=== PATIENT | male | born 1995 | race Caucasian/White ===

== ENCOUNTER 2023-03-14 05:28 | Emergency (ER) | payer BC, OTHER, SELFPAY ==
--- NOTE | ~2023-03-14 | CT_ITS ---
CT of the Abdomen and Pelvis: Indication: Abdominal pain Technique: 2.5 mm axial scans were obtained through the abdomen and pelvis following intravenous adm inistration of 100 cc of Omnipaque 350. Dose reduction technique was used on this scan by utilizing a utomated exposure control and iterative reconstruction technique. The dose-length product (DLP) was 2 14.66 mGy-cm. Findings: Scans through the lung bases are unremarkable. The liver, spleen, pancreas, adrenals and kidneys are within normal limits. Cholecystectomy clips are present. No evidence of aortic aneurysm. No lymphadenopathy. No bowel obstruction or bowel wall thickening. There is no evidence to suggest acute appendicitis. Images through the pelvis were performed. Urinary bladder unremarkable. No pelvic mass seen. No ascit es. Impression: No significant abnormalities seen. Reviewed, dictated and finalized at [facility]. Impression: No significant abnormalities seen.
[2023-03-14 05:29] VITALS: BP 143/100; PULSE 74; RESP 32; TEMP 36.6; O2SAT 100
--- NOTE | 2023-03-14 05:51 | ED.GENADULT ---
HPI - General Adult General Chief complaint: Nausea/Vomiting/Diarrhea <Jb Li DO - Last Filed: 03/16/23 14:39> Stated complaint: Vomiting <Jb Li DO - Last Filed: 03/16/23 14:39> Time Seen by Provider: 03/14/23 07:07 <Jb Li DO - Last Filed: 03/16/23 14:39> History of Present Illness HPI narrative: Renaldo is a 27M with a PMH of cannabis abuse and recent cholecystectomy that presented to the ED with epigastric pain and profuse nausea and vomiting. It started about 24 hours ago and has become worse. He cannot keep anything down. It is better with hot showers. There is no CP, dyspnea, fevers, diarrhea, constipation, or hematemesis. <Jb Li DO - Last Filed: 03/16/23 14:39> Related Data Home medications: Home Medications Medication Instructions Recorded Confirmed ondansetron 4 mg disintegrating 4 mg PO Q6H PRN Vomiting 03/14/23 03/14/23 tablet sertraline 25 mg tablet (Zoloft) 25 mg PO DAILY 03/14/23 03/14/23 <Jb Li DO - Last Filed: 03/16/23 14:39> Allergies/adverse reactions: Allergies Allergy/AdvReac Type Severity Reaction Status Date / Time No Known Allergies Allergy Verified 03/14/23 05:36 <Jb Li DO - Last Filed: 03/16/23 14:39> Review of Systems Review of Systems: All systems reviewed & are unremarkable except as noted in HPI and below <Jb Li DO - Last Filed: 03/16/23 14:39> Exam Const: General: healthy appearing and no acute distress <bJ Li DO - Last Filed: 03/16/23 14:39> Nutritional Appearance: well nourished <Jb Li DO - Last Filed: 03/16/23 14:39> Orientation/consciousness: patient oriented x3 <Jb Li DO - Last Filed: 03/16/23 14:39> HENMT: Head: normal to inspection <Jb Medinaing, DO - Last Filed: 03/16/23 14:39> Ears: external ears normal <Jb PJohnny Li, DO - Last Filed: 03/16/23 14:39> Eyes: Conjunctivae: conjunctivae normal <Jb PJohnny Li, DO - Last Filed: 03/16/23 14:39> Pupils: Equal, round and reactive pupils present <Jb PJohnny Li, DO - Last Filed: 03/16/23 14:39> Neck: Neck: normal visual inspection <Jb PJohnny Li, DO - Last Filed: 03/16/23 14:39> Chest: Chest palpation & inspection: normal inspection of the chest <Jb PJohnny Li, DO - Last Filed: 03/16/23 14:39> Resp: Effort & Inspection: normal respiratory effort <Jb PJohnny Li, DO - Last Filed: 03/16/23 14:39> Auscultation: clear to auscultation bilaterally <Jb Li, DO - Last Filed: 03/16/23 14:39> Cardio: Rate: regular rate <Jb PJohnny Li, DO - Last Filed: 03/16/23 14:39> Rhythm: regular rhythm <Jb PJohnny Li, DO - Last Filed: 03/16/23 14:39> GI: Inspection: non-distended <Jb Li, DO - Last Filed: 03/16/23 14:39> GI Palp: Yes Soft to palpation, No Tenderness to palpation present (GI), No Guarding due to palpation present (GI), No Rigid due to palpation and No Rebound tenderness present <Jb PJohnny Li, DO - Last Filed: 03/16/23 14:39> Auscultation: normal bowel sounds <Jb P. Jen, DO - Last Filed: 03/16/23 14:39> : General: Yes bladder normal to palpation <Jb PJohnny Li, DO - Last Filed: 03/16/23 14:39> Back/Spine/Pelvis: Back: no CVA tenderness <Jb PJohnny Li, DO - Last Filed: 03/16/23 14:39> Skin: General skin exam: normal color <Jb Li DO - Last Filed: 03/16/23 14:39> Rashes: no rashes <Jb Li DO - Last Filed: 03/16/23 14:39> Neuro: General: patient oriented x3 and moves all extremities <Jb Li DO - Last Filed: 03/16/23 14:39> Cranial nerves: Yes Nystagmus not present <Jb Li DO - Last Filed: 03/16/23 14:39> Speech: normal speech <Jb Li DO - Last Filed: 03/16/23 14:39> Extrem: General: normal to inspection <Jb Li DO - Last Filed: 03/16/23 14:39> Psych: Mental Status: mental status grossly
[2023-03-14] MEDS: ONDANSETRON INJ 4 MG/2 ML VIAL IV PUSH (06:02)
[2023-03-14] MEDS: diphenhydrAMINE HCl INJ 50 MG/ML VIAL IV PUSH (06:02)
[2023-03-14 06:03] LABS: Basophils Absolute Auto 0.03 K/mm3 (0.00-0.10); Basophils Percent Auto 0.2 % (0.0-1.0); Hematocrit 51.1 % (40.0-54.0); Hemoglobin 18.3 g/dL (14.0-18.0); Immature Granulocyte Absolute 0.07 K/mm3 (0.00-0.00); Immature Granulocyte Percent A 0.5 % (0.0-0.0); Lymphocytes Absolute Auto 1.38 K/mm3 (1.10-4.50); Lymphocytes Percent Auto 10.7 % (18.0-42.0); Mean Corpuscular HGB Conc 35.8 g/dL (32.0-36.0); Mean Corpuscular Volume 89.3 fL (78.0-102.0); Mean Platelet Volume 9.6 fl (8.7-11.0); Monocytes Absolute Auto 0.53 K/mm3 (0.10-0.90); Monocytes Percent Auto 4.1 % (2.0-11.0); Neutrophils Absolute Auto 10.9 K/mm3 (1.7-7.2); Neutrophils Percent Auto 84.5 % (50.0-70.0); Platelet Count Result 354 K/mm3 (150-420); Red Blood Count 5.72 M/mm3 (4.70-6.10); Red Cell Distribution Width 12.2 % (11.6-14.4); White Blood Count 12.9 K/mm3 (4.8-10.8)
[2023-03-14] MEDS: SODIUM CHLORIDE 0.9% IV 1,000 ML 999 ML IV CONT (06:03)
[2023-03-14 06:08] VITALS: BP 142/99; PULSE 73; RESP 18; O2SAT 100
[2023-03-14] MEDS: CAPSAICIN 0.025% CREAM 60 GM TUBE 1 APPLIC TOPICAL (06:18)
[2023-03-14 06:28] LABS: Alanine Aminotransferase 31 U/L (16-63); Albumin Level 5.6 g/dL (3.4-5.0); Alkaline Phosphatase 91 U/L (46-116); Anion Gap 20 mmol/L (8-16); Aspartate Amino Transferase 16 U/L (15-37); Bilirubin,Total 0.9 mg/dL (0.00-1.00); Blood Urea Nitrogen 27 mg/dL (7-18); CRP 1.1 mg/dL (0.0-0.9); Calcium 11.4 mg/dL (8.5-10.1); Carbon Dioxide 21 mmol/L (21-32); Chloride 98 mmol/L (98-108); Estimated CRCL calculation 43 ml/min; Estimated Glomerular Filt Rate 47; Glucose 185 mg/dL (70-99); Lipase 21 U/L (16-77); Osmolality Calculated 298 mOsm/kg (285-295); Potassium 3.7 mmol/L (3.5-5.1); Sodium 139 mmol/L (136-145)
[2023-03-14 06:39] VITALS: BP 120/86; PULSE 89; RESP 20
--- NOTE | 2023-03-14 06:42 | PC.NURSE ---
Addendum entered by Anitra Sampson RN 03/14/23 06:43: 0642-PT TRANSPORTED TO IMAGING VIA HOSPITAL STRETCHER, ESCORTED BY ORDERLY. Original Note: 0642-PT TRANSPORTED VIA HOSPITAL STRETCHER, ESCORTED BY ORDERLY.
[2023-03-14 06:46] LABS: Influenza A QL RT-PCR Negative (Negative); Influenza B QL RT-PCR Negative (Negative); SARS-CoV-2 RNA PCR Negative (Negative)
[2023-03-14 06:50] LABS: RSV RNA, RT-PCR Negative (Negative)
--- NOTE | 2023-03-14 06:55 | PC.NURSE ---
0655-PT RETURNS FROM IMAGING, VIA HOSPITAL STRETCHER, ESCORTED BY [employer].
--- NOTE | 2023-03-14 07:35 | PC.NURSE ---
pt is lying on stretcher with ivf infusing. pt had arm bent and fluids were not infusing. pt to await ivf completion for dc. sig other at bedside. will continue to monitor.
[2023-03-14 07:39] VITALS: BP 126/93; PULSE 54; RESP 18; O2SAT 100
== END 2023-03-14 07:45 | disposition home or self-care (01) ==
PROVIDERS: Family Medicine; Emergency Provider Student in an Organized Health Care Education/Training Program
DX: R11.2 Nausea with vomiting, unspecified (principal); N17.9 Acute kidney failure, unspecified; Z20.822 Contact with and (suspected) exposure to COVID-19; Z79.899 Other long term (current) drug therapy; Z90.49 Acquired absence of other specified parts of digestive tract
CPT/HCPCS: 36415; 74177; 80053; 83690; 85025; 86140; 87637; 96361; 96374; 96375; 99284; A9270; J1200; J2405; J7030; Q9967

== ENCOUNTER 2023-04-29 10:33 | Emergency (ER) | payer BC, OTHER, SELFPAY ==
[2023-04-29] VITALS (23 sets, daily range): BP systolic 116–152; BP diastolic 66–105; PULSE 72–129; RESP 15–33; TEMP 36.6–37; O2SAT 96–100
--- NOTE | 2023-04-29 10:55 | ED.NAVMDI ---
HPI - Nausea/Vomiting/Diarrhea General Chief complaint: Nausea/Vomiting/Diarrhea Stated complaint: VOMITING Time Seen by Provider: 04/29/23 10:42 Source: patient Mode of arrival: ambulatory Limitations: no limitations History of Present Illness HPI Narrative: Patient is a 27-year-old male with significant past medical history that presents today for nausea vomiting. Patient has nausea vomiting and generalized abdominal pain for the last night. He says he ate a steak last night was unable it down and started throwing up. Says he has been throwing up on and on. He has not taken anything for this. He also lot of nausea and slight generalized abdominal pain. He did have his gallbladder out 3 months ago. States they took his gallbladder out for this reason because he was having a lot of episodes of nausea and vomiting. He states that it is not gotten any better since 8 of gallbladder out. MD elicited complaint: nausea and vomiting Pertinent past history: cyclical vomiting Onset (ago): day(s) Description of vomiting: watery Associated nausea: Yes Associated abdominal pain: No Location of pain: diffuse Radiation: diffuse Pain consistency: intermittent Severity: moderate Quality: cramping Exacerbating factors: none Relieving factors: none Context: history of abdominal surgery and marijuana use Associated symptoms: diaphoresis and nausea/vomiting Related Data Home Medications Medication Instructions Recorded Confirmed ondansetron 4 mg disintegrating 4 mg PO Q6H PRN Vomiting 03/14/23 03/14/23 tablet sertraline 25 mg tablet (Zoloft) 25 mg PO DAILY 03/14/23 03/14/23 Allergies Allergy/AdvReac Type Severity Reaction Status Date / Time No Known Allergies Allergy Verified 03/14/23 05:36 Review of Systems Review of Systems: All systems reviewed & are unremarkable except as noted in HPI and below Constitutional: Constitutional: Reports as per HPI Eyes: Eyes: Reports no additional eye complaints ENT: Reports system reviewed and no additional complaints, except as documented Cardiovascular: Cardiovascular: Reports no additional cardiovascular complaints Respiratory: Respiratory: Reports no additional respiratory complaints Gastrointestinal: Gastrointestinal: Reports as per HPI, Reports abdominal pain, Reports nausea and Reports vomiting Genitourinary: Genitourinary: Reports no additional male genitourinary complaints Musculoskeletal: Musculoskeletal: Reports no additional musculoskeletal complaints Psychiatric: Psychiatric: Reports no additional psychiatric complaints Endocrine: Endocrine: Reports no additional endocrine complaints Exam Const: General: diaphoretic and ill appearing Nutritional Appearance: thin Orientation/consciousness: patient oriented x3 Limitations: no limitations HENMT: Head: normal to inspection Ears: external ears normal Face/Nose/Sinus: Normal external nose present Face and sinus: normal facial exam Mouth: Yes Normal oral and palatal mucosa present Teeth and gingiva: dentition normal Throat: posterior oropharynx normal Eyes: Conjunctivae: conjunctivae normal Cornea: corneas normal Pupils: Equal, round and reactive pupils present Neck: Neck: normal visual inspection Chest: Chest palpation & inspection: normal inspection of the chest Resp: Effort & Inspection: normal respiratory effort Auscultation: clear to auscultation bilaterally Cardio: Rate: regular rate Rhythm: regular rhythm GI: GI Palp: Yes Tenderness to palpation present (GI) Auscultation: Hyperactive bowel sounds present : General: Yes bladder normal to palpation Back/Spine/Pelvis: Back: no CVA tenderness Skin: General skin exam: normal color Neuro: General: patient oriented x3 Cranial nerves: Yes Nystagmus not present Speech: normal speech Extrem: General: normal to inspection Psych: Mental Status: mental status grossly normal Course Reevaluation(s) Reevaluation #1: Patient after receivin
[2023-04-29 10:59] LABS: Basophils Absolute Auto 0.08 K/mm3 (0.00-0.10); Basophils Percent Auto 0.4 % (0.0-1.0); Hematocrit 56.4 % (40.0-54.0); Immature Granulocyte Absolute 0.12 K/mm3 (0.00-0.00); Immature Granulocyte Percent A 0.6 % (0.0-0.0); Lymphocytes Absolute Auto 2.42 K/mm3 (1.10-4.50); Lymphocytes Percent Auto 12.2 % (18.0-42.0); Mean Corpuscular HGB Conc 35.5 g/dL (32.0-36.0); Mean Corpuscular Hemoglobin 32.4 pg (27.0-31.0); Mean Corpuscular Volume 91.3 fL (78.0-102.0); Mean Platelet Volume 9.6 fl (8.7-11.0); Monocytes Absolute Auto 1.44 K/mm3 (0.10-0.90); Monocytes Percent Auto 7.2 % (2.0-11.0); Neutrophils Absolute Auto 15.9 K/mm3 (1.7-7.2); Neutrophils Percent Auto 79.6 % (50.0-70.0); Platelet Count Result 429 K/mm3 (150-420); Red Blood Count 6.18 M/mm3 (4.70-6.10); Red Cell Distribution Width 12.2 % (11.6-14.4); White Blood Count 19.9 K/mm3 (4.8-10.8)
[2023-04-29] MEDS: PANTOPRAZOLE SODIUM IV 40 MG VIAL IV PUSH (11:03)
[2023-04-29] MEDS: METOCLOPRAMIDE HCL INJ 10 MG/2 ML VIAL IV PUSH (11:03)
[2023-04-29] MEDS: ONDANSETRON INJ 4 MG/2 ML VIAL IV PUSH (11:03)
[2023-04-29] MEDS: SODIUM CHLORIDE 0.9% IV 1,000 ML 999 ML IV CONT ×3 (11:03→13:28)
[2023-04-29 11:11] LABS: Alanine Aminotransferase 75 U/L (16-63); Albumin Level 6.4 g/dL (3.4-5.0); Alkaline Phosphatase 110 U/L (46-116); Anion Gap 24 mmol/L (8-16); Aspartate Amino Transferase 47 U/L (15-37); Bilirubin,Total 0.8 mg/dL (0.00-1.00); Blood Urea Nitrogen 24 mg/dL (7-18); Carbon Dioxide 25 mmol/L (21-32); Chloride 90 mmol/L (98-108); Estimated Glomerular Filt Rate 19; Glucose 149 mg/dL (70-99); Lipase 23 U/L (16-77); Osmolality Calculated 295 mOsm/kg (285-295); Potassium 3.6 mmol/L (3.5-5.1); Sodium 139 mmol/L (136-145); Total Protein 11.9 g/dL (6.4-8.2)
[2023-04-29 11:12] LABS: Calcium 12.2 mg/dL (8.5-10.1)
[2023-04-29 14:46] LABS: Anion Gap 8 mmol/L (8-16); Blood Urea Nitrogen 21 mg/dL (7-18); Calcium 8.9 mg/dL (8.5-10.1); Carbon Dioxide 30 mmol/L (21-32); Chloride 103 mmol/L (98-108); Estimated Glomerular Filt Rate 40; Glucose 109 mg/dL (70-99); Osmolality Calculated 296 mOsm/kg (285-295); Potassium 3.5 mmol/L (3.5-5.1); Sodium 141 mmol/L (136-145)
== END 2023-04-29 15:10 | disposition home or self-care (01) ==
PROVIDERS: Emergency Provider Family Medicine
DX: K52.9 Noninfective gastroenteritis and colitis, unspecified (principal); E86.0 Dehydration; N17.9 Acute kidney failure, unspecified
CPT/HCPCS: 36415; 80048; 80053; 83690; 85025; 96361; 96374; 96375; 99284; 99285; C9113; J2405; J2765; J7030

== ENCOUNTER 2023-06-14 15:55 | Emergency (ER) | payer BC, OTHER, SELFPAY ==
[2023-06-14] VITALS (12 sets, daily range): BP systolic 133–151; BP diastolic 81–105; PULSE 72–83; RESP 17–20; TEMP 36.4–36.6; O2SAT 98–100
--- NOTE | 2023-06-14 16:01 | ED.NAVMDI ---
HPI - Nausea/Vomiting/Diarrhea General Chief complaint: Nausea/Vomiting/Diarrhea Stated complaint: N-V Time Seen by Provider: 06/14/23 15:59 History of Present Illness HPI Narrative: Pt reports has vomited over 100 times this mornig. Pt requesting IV meds. Pt has history of this and admits to smoking cannabis and has been told in the past that this is likely the cause but pt admits to still smoking. Pt also has crampy abdominal pain. Pt denies fever or diarrhea. Related Data Home Medications Medication Instructions Recorded Confirmed ondansetron 4 mg disintegrating 4 mg PO Q6H PRN Vomiting 03/14/23 06/14/23 tablet sertraline 25 mg tablet (Zoloft) 25 mg PO DAILY 03/14/23 06/14/23 Allergies Allergy/AdvReac Type Severity Reaction Status Date / Time No Known Allergies Allergy Verified 06/14/23 16:02 Review of Systems Review of Systems: All systems reviewed & are unremarkable except as noted in HPI and below Exam Const: General: no acute distress and alert Nutritional Appearance: thin Orientation/consciousness: patient oriented x3 Limitations: no limitations HENMT: Mouth: Yes Normal oral and palatal mucosa present Neck: Neck: normal visual inspection Resp: Effort & Inspection: normal respiratory effort Auscultation: clear to auscultation bilaterally Cardio: Rate: regular rate Rhythm: regular rhythm GI: GI Palp: Yes Soft to palpation and No Tenderness to palpation present (GI) Auscultation: normal bowel sounds Skin: General skin exam: normal color Wounds: no wounds Neuro: General: patient oriented x3, moves all extremities, no meningeal signs and no focal motor deficits Extrem: General: normal to inspection and no clubbing, cyanosis or edema Psych: Other: very anxious and hyperventilating Course Vital Signs Vital signs: Vital Signs Temperature 97.6 F 06/14/23 15:55 Pulse Rate 72 06/14/23 15:55 Respiratory Rate 20 06/14/23 15:55 Blood Pressure 133/81 06/14/23 15:55 Pulse Oximetry 100 06/14/23 15:55 Temperature 97.8 F 06/14/23 17:03 Pulse Rate 83 06/14/23 17:03 Respiratory Rate 17 06/14/23 17:03 Blood Pressure 151/99 H 06/14/23 17:03 Pulse Oximetry 98 06/14/23 17:03 Oxygen Delivery Room Air 06/14/23 17:03 MDM - Nausea/Vomiting/Diarrhea MDM Narrative Medical decision making narrative: Pt has history of canabis hyperemesis and is still smoking cannabis. Pt reportedly has vomited over 100 times but does not appear dehydrated clinically. Wioll check some lytes and give IVF and Haldol. Pt BUN and Cr elevated again. Not sure if it's dehydration or renal insufficiency. likely dehydration but needs to follow up and get labs when not vomiting to be safe. Inromed mother of this. Pt also needs to stop smoking cannabis. Informed both patient and mother. Pt is resting comfortably and not vomiting. Will discharge home. Pt can orally rehydrate now that the vomiting is under control. madina prescribe a few zofran for home. Lab Data 06/14/23 16:09 Labs: Lab Results 06/14/23 Range/Units 16:09 Sodium 137 (136-145) mmol/L Potassium 4.0 (3.5-5.1) mmol/L Chloride 93 L (98-108) mmol/L Carbon Dioxide 21 (21-32) mmol/L Anion Gap 23 H (8-16) mmol/L BUN 19 H (7-18) mg/dL Creatinine 2.03 H (0.70-1.30) mg/dL Estim Creat Clear Calc Not Reportable Estimated GFR 40 L (59 - ) Glucose 164 H (70-99) mg/dL Calculated Osmolality 290 (285-295) mOsm/kg Calcium 11.7 H (8.5-10.1) mg/dL Discharge Plan Discharge Clinical Impression: Cannabis hyperemesis syndrome concurrent with and due to cannabis dependence Patient Disposition: Home, Self-Care Condition: Improved Instructions: Antibiotic Form, Cannabis Use Disorder (ED), Cyclic Vomiting Syndrome (ED) Additional Instructions: have kidney function rechecked when not vomiting and dehydrated. stop smoking cannabis. Prescriptions: New ond
[2023-06-14] MEDS: SODIUM CHLORIDE 0.9% IV 1,000 ML 999 ML IV CONT (16:14)
[2023-06-14] MEDS: HALOPERIDOL LACTATE 5 MG/ML VIAL IV PUSH (16:15)
[2023-06-14 16:23] LABS: Anion Gap 23 mmol/L (8-16); Blood Urea Nitrogen 19 mg/dL (7-18); Calcium 11.7 mg/dL (8.5-10.1); Carbon Dioxide 21 mmol/L (21-32); Chloride 93 mmol/L (98-108); Estimated Glomerular Filt Rate 40; Glucose 164 mg/dL (70-99); Osmolality Calculated 290 mOsm/kg (285-295); Sodium 137 mmol/L (136-145)
== END 2023-06-14 17:03 | disposition home or self-care (01) ==
PROVIDERS: Emergency Provider Emergency Medicine; PCP Family Medicine
DX: J66.2 Cannabinosis (principal)
CPT/HCPCS: 36415; 80048; 96361; 96374; 99284; J1630; J7030

== ENCOUNTER 2023-08-17 15:25 | Emergency (ER) | payer BC, OTHER, SELFPAY ==
--- NOTE | ~2023-08-17 | XR_ITS ---
EXAMINATION: XR chest 1V portable INDICATION: Vomiting TECHNIQUE: Portable AP chest at 1722 hours COMPARISON: None available FINDINGS: The lungs are free of acute opacities. No pleural effusion or pneumothorax. The cardiomedia stinal silhouette is normal. IMPRESSION: 1. No acute cardiopulmonary abnormality. Reviewed, dictated and finalized at location F.
--- NOTE | ~2023-08-17 | CT_ITS ---
EXAMINATION: CT abdomen pelvis wo con DATE: 08/17/2023 18:37 INDICATION: Abdominal pain TECHNIQUE: Computed tomography (CT) of the abdomen and pelvis was performed without intravenous contr ast. The dose-length product (DLP) was 242.60 mGy-cm. Automated exposure control and iterative recons truction technique were employed. COMPARISON: 03/14/2023 FINDINGS: The lung bases are clear. The heart size is normal. Changes of cholecystectomy are noted. W ithin the limitations of noncontrast examination, the liver, spleen, pancreas, and adrenal glands are normal. The kidneys are unremarkable. No pathologically enlarged abdominal or pelvic lymph nodes are identified. There is no free intraperitoneal gas. There is mild distention of the stomach and proxim al duodenum with transition in the third portion of the duodenum. There is mild lumbar spondylosis. IMPRESSION: 1. Mild distention of the stomach and proximal duodenum which is nonspecific but can be seen in setti ng of superior mesenteric artery syndrome. Reviewed, dictated and finalized at location F. IMPRESSION: 1. Mild distention of the stomach and proximal duodenum which is nonspecific bu t can be seen in setting of superior mesenteric artery syndrome.
[2023-08-17 15:27] VITALS: BP 136/101; PULSE 77; RESP 20; TEMP 36.4; O2SAT 100
--- NOTE | 2023-08-17 15:29 | ED.NAVMDI ---
HPI - Nausea/Vomiting/Diarrhea General Chief complaint: Nausea/Vomiting/Diarrhea Stated complaint: NAUSEA Time Seen by Provider: 08/17/23 15:29 Source: patient Mode of arrival: ambulatory Limitations: no limitations History of Present Illness HPI Narrative: 27-year-old male with a history of cannabis cyclic vomiting syndrome presents to the ER with -- multiple episodes of vomiting -- diffuse abdominal pain no MD elicited complaint: vomiting and abdominal pain Pertinent past history: cyclical vomiting Onset (ago): hour(s) ( 2 days) Description of vomiting: watery Associated nausea: Yes Associated abdominal pain: Yes Location of pain: diffuse Radiation: diffuse Pain consistency: constant Severity: severe Exacerbating factors: none Relieving factors: none Associated symptoms: denies other symptoms Related Data Home Medications Medication Instructions Recorded Confirmed ondansetron 4 mg disintegrating 4 mg PO Q6H PRN Vomiting 03/14/23 06/14/23 tablet sertraline 25 mg tablet (Zoloft) 25 mg PO DAILY 03/14/23 06/14/23 Allergies Allergy/AdvReac Type Severity Reaction Status Date / Time No Known Allergies Allergy Verified 06/14/23 16:02 Review of Systems Review of Systems: All systems reviewed & are unremarkable except as noted in HPI and below Constitutional: Constitutional: Reports as per HPI, Reports no additional constitutional complaints and Reports weakness Eyes: Eyes: Reports as per HPI and Reports no additional eye complaints ENT: Reports system reviewed and no additional complaints, except as documented and Reports as per HPI Cardiovascular: Cardiovascular: Reports as per HPI and Reports no additional cardiovascular complaints Respiratory: Respiratory: Reports as per HPI and Reports no additional respiratory complaints Gastrointestinal: Gastrointestinal: Reports as per HPI, Reports no additional gastrointestinal complaints, Reports nausea and Reports vomiting Genitourinary: Genitourinary: Reports no additional male genitourinary complaints Musculoskeletal: Musculoskeletal: Reports no additional musculoskeletal complaints and Reports as per HPI Integumentary/Breasts: Skin/Breast: Reports system reviewed and no additional complaints, except as docu and Reports as per HPI Neurologic: Reports system reviewed and no additional complaints, except as documented and Reports as per HPI Psychiatric: Psychiatric: Reports no additional psychiatric complaints, Reports as per HPI and Reports anxiety Endocrine: Endocrine: Reports no additional endocrine complaints and Reports as per HPI Hematologic/Lymphatic: Hematologic/Lymphatic: Reports no additional hematologic/lymphatic complaints and Reports as per HPI Allergic/Immunologic: Allergic/Immunologic: Reports no additional allergic/immunologic complaints and Reports as per HPI Exam Narrative: blood pressure is 136/101. Pulse is 70 temperature 36.4? Const: General: ill appearing Orientation/consciousness: patient oriented x3 Limitations: no limitations HENMT: Head: normal to inspection Ears: external ears normal Face/Nose/Sinus: Normal external nose present Face and sinus: normal facial exam Mouth: Yes Normal oral and palatal mucosa present Throat: posterior oropharynx normal Eyes: Conjunctivae: conjunctivae normal Cornea: corneas normal Pupils: Equal, round and reactive pupils present EOM: EOMs intact bilaterally Direct Ophthalmoscopy: no photophobia Neck: Neck: normal visual inspection Chest: Chest palpation & inspection: normal inspection of the chest Resp: Effort & Inspection: normal respiratory effort Auscultation: clear to auscultation bilaterally Cardio: Rate: regular rate Rhythm: regular rhythm GI: GI Palp: Yes Soft to palpation Other: diffuse tenderness without any rigidity or rebound : General: Yes no CVA tenderness Back/Spine/Pelvis: Back: no CVA tenderness Skin: General skin exam: normal color Rashes: no
[2023-08-17] MEDS: LACTATED RINGERS 1,000 ML 999 ML IV CONT (15:49)
[2023-08-17] MEDS: HALOPERIDOL LACTATE 5 MG/ML VIAL IV PUSH (15:50)
[2023-08-17 15:52] LABS: Basophils Absolute Auto 0.09 K/mm3 (0.00-0.10); Basophils Percent Auto 0.5 % (0.0-1.0); Eosinophils Absolute Auto 0.02 K/mm3 (0.02-0.50); Eosinophils Percent Auto 0.1 % (1.0-6.0); Hematocrit 57.2 % (40.0-54.0); Hemoglobin 20.5 g/dL (14.0-18.0); Immature Granulocyte Absolute 0.16 K/mm3 (0.00-0.00); Immature Granulocyte Percent A 0.8 % (0.0-0.0); Lymphocytes Absolute Auto 1.58 K/mm3 (1.10-4.50); Mean Corpuscular HGB Conc 35.8 g/dL (32-36); Mean Corpuscular Hemoglobin 32.2 pg (27.0-31.0); Mean Corpuscular Volume 89.8 fL (78.0-102.0); Mean Platelet Volume 9.4 fl (8.7-11.0); Monocytes Absolute Auto 1.57 K/mm3 (0.10-0.90); Monocytes Percent Auto 7.9 % (2.0-11.0); Neutrophils Absolute Auto 16.44 K/mm3 (1.70-7.20); Neutrophils Percent Auto 82.7 % (50.0-70.0); Platelet Count Result 414 K/mm3 (150-420); Red Blood Count 6.37 M/mm3 (4.70-6.10); White Blood Count 19.9 K/mm3 (4.8-10.8)
[2023-08-17 16:08] LABS: INR 0.9; Partial Thromboplastin Time 23.3 Sec (23.9-30.70); Prothrombin Time 10.3 Seconds (9.50-12.1)
[2023-08-17 16:11] LABS: Alanine Aminotransferase 77 U/L (16-63); Alkaline Phosphatase 107 U/L (46-116); Anion Gap 22 mmol/L (8-16); Aspartate Amino Transferase 62 U/L (15-37); Bilirubin,Total 1.5 mg/dL (0.00-1.00); Blood Urea Nitrogen 16 mg/dL (7-18); Carbon Dioxide 22 mmol/L (21-32); Chloride 94 mmol/L (98-108); Estimated CRCL calculation 35 ml/min; Estimated Glomerular Filt Rate 31; Glucose 215 mg/dL (70-99); Osmolality Calculated 293 mOsm/kg (285-295); Sodium 138 mmol/L (136-145)
[2023-08-17 16:13] LABS: Calcium 12.8 mg/dL (8.5-10.1); Potassium 5.9 mmol/L (3.5-5.1)
[2023-08-17 16:14] LABS: Lactic Acid Reflex 7.4 mmol/L (0.4-2.0)
[2023-08-17 16:22] LABS: Creatine Kinase 353 U/L (39-308); Lipase 27 U/L (16-77); Troponin I 9.9 ng/L (0.00-60.4)
[2023-08-17 16:30] VITALS: BP 138/112; PULSE 68; RESP 20; O2SAT 99
[2023-08-17] MEDS: SODIUM CHLORIDE 0.9% IV 1,000 ML 999 ML IV CONT (16:46)
[2023-08-17 17:01] LABS: Ethanol < 3 mg/dL (0-6)
[2023-08-17] MEDS: SODIUM CHLORIDE 0.9% IV 1,000 ML 300 ML IV CONT (17:10)
[2023-08-17 17:30] VITALS: BP 138/112; PULSE 78; RESP 20; O2SAT 99
[2023-08-17 18:22] LABS: Appearance Urine Clear (Clear); Bilirubin Urine 2+ (Negative); Blood Urine 2+ (Negative); Color Urine Dark Yellow (Yellow); Glucose Urine UA Negative (Negative); Ketones Urine Trace (Negative); Leukocyte Esterase Ur Trace LEU/UL (Negative); Nitrate Urine Negative (Negative); Protein Urine 3+ (Negative); Specific Grav Ur >= 1.030 (1.010-1.020); Urobilinogen Urine 0.2 mg/dL (0.2-1.0)
[2023-08-17] MEDS: ONDANSETRON INJ 4 MG/2 ML VIAL IV PUSH (18:22)
[2023-08-17 18:30] VITALS: BP 111/100; PULSE 105; RESP 20; O2SAT 99
[2023-08-17 18:30] LABS: Add Urine Microscopic? YES; Bacteria Urine 2+ /hpf; Hyaline Casts Urine 15-19 /lpf; RBC Urine 21-50 /hpf (0-2); Squamous Epithelial Cell Urine None seen /hpf (Few); WBC Urine 0-3 /hpf (0-3)
[2023-08-17 18:31] LABS: Amorphous Sediment Urine Moderate
[2023-08-17 18:33] LABS: Amphetamine Screen Urine Negative (Negative); Barbiturate Screen Urine Negative (Negative); Benzodiazepines Screen Urine Negative (Negative); Cannabinoid Screen Urine Positive (Negative); Cocaine Screen Urine Positive (Negative); Methadone Screen Urine Negative (Negative); Opiate Screen Urine Positive (Negative); Phencyclidine Screen Urine Negative (Negative)
[2023-08-17 18:49] LABS: Reflex Lactic Acid Yes or No Add Lactic
--- NOTE | 2023-08-17 19:21 | PC.NURSE ---
patient report received from FREEDOM Ortiz. patient resting on stretcher, ivf infusing and patient temperature rechecked, now febrile. ERP made aware.
[2023-08-17 19:22] VITALS: PULSE 109; RESP 20; TEMP 38.6; O2SAT 96
--- NOTE | 2023-08-17 19:33 | PC.NURSE ---
patient called out as IV pump beeping. encouraged to leave his arm straight as the pump continues to beep if his arm is bent. patient asking RN if he can leave now. RN explained patient should stay however we cannot keep him here if he wishes to leave. patient calling his ride, asked if he has been running a fever at home and patient states probably adding he has been sweating . respiratory swab obtained and sent to lab, biomechanical engineer updated on new orders for blood cultures if patient agrees.
--- NOTE | 2023-08-17 19:44 | PC.NURSE ---
RN and ERP at patient bedside for update. patient awake and alert, states he needs to leave now as his neighbor is his only ride and he is only here for work and has no family close. patient states he cannot stay at the hospital .
[2023-08-17 20:01] LABS: Anion Gap 13 mmol/L (8-16); Blood Urea Nitrogen 14 mg/dL (7-18); Calcium 9.8 mg/dL (8.5-10.1); Carbon Dioxide 24 mmol/L (21-32); Chloride 104 mmol/L (98-108); Estimated CRCL calculation 62 ml/min; Estimated Glomerular Filt Rate 60; Glucose 123 mg/dL (70-99); Osmolality Calculated 293 mOsm/kg (285-295); Potassium 4.6 mmol/L (3.5-5.1); Sodium 141 mmol/L (136-145)
[2023-08-17 20:37] LABS: Influenza A QL RT-PCR Negative (Negative); Influenza B QL RT-PCR Negative (Negative); RSV RNA, RT-PCR Negative (Negative); SARS-CoV-2 RNA PCR Negative (Negative)
--- NOTE | 2023-08-24 12:37 | PC.NURSE ---
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
== END 2023-08-17 19:54 | disposition left against medical advice (07) ==
PROVIDERS: Emergency Provider Internal Medicine Critical Care Medicine
DX: R11.15 Cyclical vomiting syndrome unrelated to migraine (principal); R10.84 Generalized abdominal pain; N17.9 Acute kidney failure, unspecified; F19.10 Other psychoactive substance abuse, uncomplicated; Z20.822 Contact with and (suspected) exposure to COVID-19
CPT/HCPCS: 36415; 71045; 74176; 80048; 80053; 80307; 81001; 82550; 83605; 83690; 84484; 85025; 85610; 85730; 87040; 87637; 96361; 96374; 96375; 99284; J1630; J2405; J7030; J7120

== ENCOUNTER 2024-01-10 16:52 | Emergency (ER) | payer SELFPAY ==
[2024-01-10 16:52] VITALS: BP 136/96; PULSE 117; RESP 30; TEMP 36.2; O2SAT 100
[2024-01-10 16:59] LABS: Glucose Point of Care 146 mg/dl (65-105)
--- NOTE | 2024-01-10 17:00 | ED.NAVMDI ---
HPI - Nausea/Vomiting/Diarrhea General Chief complaint: Nausea/Vomiting/Diarrhea Stated complaint: vomiting Time Seen by Provider: 01/10/24 16:54 History of Present Illness HPI Narrative: Pt presents with severe nausea and vomiting but no diarrhea. Pt admits to smoking marijuana and has a past history of cannabis induced hyperemesis. Pt says he has vomited 100 x and has crampy pain. Pt is requesting IV fluids and something for nausea. Pt denies fever. Pt says he was in the [facility] at [facility] and told it would be a 4 hr wait so he came here. Related Data Home Medications Medication Instructions Recorded Confirmed Acid Admissions Consultant (omeprazole) 1 tablet PO DAILY 01/10/24 01/10/24 Allergies Allergy/AdvReac Type Severity Reaction Status Date / Time No Known Allergies Allergy Verified 01/10/24 17:04 Review of Systems Review of Systems: All systems reviewed & are unremarkable except as noted in HPI and below Exam Const: General: healthy appearing and no acute distress Nutritional Appearance: well nourished Orientation/consciousness: patient oriented x3 Limitations: no limitations HENMT: Mouth: Yes dry mucous membranes Resp: Effort & Inspection: normal respiratory effort Auscultation: clear to auscultation bilaterally Cardio: Rate: regular rate Rhythm: regular rhythm GI: GI Palp: Yes Soft to palpation and Yes Tenderness to palpation present (GI) Auscultation: Hyperactive bowel sounds present Skin: General skin exam: normal color Rashes: no rashes Wounds: no wounds Neuro: General: patient oriented x3, no meningeal signs and no focal motor deficits Speech: normal speech Extrem: General: normal to inspection and no clubbing, cyanosis or edema Psych: Affect: Anxious affect present (hyperventilating) Course Vital Signs Vital signs: Vital Signs Temperature 97.2 F L 01/10/24 16:52 Pulse Rate 117 H 01/10/24 16:52 Respiratory Rate 30 H 01/10/24 16:52 Blood Pressure 136/96 H 01/10/24 16:52 Pulse Oximetry 100 01/10/24 16:52 Oxygen Delivery Room Air 01/10/24 16:52 Temperature 97.2 F L 01/10/24 16:52 Pulse Rate 66 01/10/24 17:03 Respiratory Rate 24 H 01/10/24 17:03 Blood Pressure 136/96 H 01/10/24 16:52 Pulse Oximetry 100 01/10/24 17:03 Oxygen Delivery Room Air 01/10/24 17:03 MDM - Nausea/Vomiting/Diarrhea MDM Narrative Medical decision making narrative: Pt presents with nausea and vomiting. Pt has a history of cannabis induced hyperemesis in past and admits to using recently. This is likely the cause. Will give IV fluids and haldo and check cbc and cmp. Pt resting comfortable after haldol. Discussed elevated creatinine with mother. could be related to vomiting and dehydration but is consistently up. Pt needs to follwo up with PCp and get cratinine checked when not vomiting. Pt also nees to stop smoking cannabis or this will continue to happen. Pt should be ok to go home now. Lab Data 01/10/24 17:30 01/10/24 17:30 Labs: Lab Results 01/10/24 01/10/24 Range/Units 16:57 17:30 WBC 17.2 H (4.8-10.8) K/mm3 RBC 5.78 (4.70-6.10) M/mm3 Hgb 18.7 H (14.0-18.0) g/dL Hct 53.4 (40.0-54.0) % MCV 92.4 (78.0-102.0) fL MCH 32.4 H (27.0-31.0) pg MCHC 35.0 (32-36) g/dL RDW 12.3 (11.6-14.4) % Plt Count 392 (150-420) K/mm3 MPV 9.5 (8.7-11.0) fl Immature Gran % (Auto) 0.7 H (0.0-0.0) % Neut % (Auto) 82.2 H (50.0-70.0) % Lymph % (Auto) 8.0 L (18.0-42.0) % [place] % (Auto) 8.8 (2.0-11.0) % Eos % (Auto) 0.1 L (1.0-6.0) % Baso % (Auto) 0.2 (0.0-1.0) % Lymph # (Auto) 1.38 (1.10-4.50) K/mm3 [place] # (Auto) 1.52 H (0.10-0.90) K/mm3 Eos # (Auto) 0.01 L (0.02-0.50) K/mm3 Baso # (Auto) 0.03 (0.00-0.10) K/mm3 Abs Immat Gran (auto) 0.12 H (0.00-0.00) K/mm3 Absolute Neuts (auto) 14.14 H (1.70-7.20) K/mm3 Absolute Nucleated RBC 0.00 (0.00-0.00) K/mm3 Nucleated RBC %
[2024-01-10 17:03] VITALS: PULSE 66; RESP 24; O2SAT 100
[2024-01-10] MEDS: SODIUM CHLORIDE 0.9% IV 1,000 ML 999 ML IV CONT (17:25)
[2024-01-10] MEDS: HALOPERIDOL LACTATE 5 MG/ML VIAL IV PUSH (17:25)
--- NOTE | 2024-01-10 17:38 | PC.NURSE ---
Pt continues to rapid breathe. Have given instruction and demonstration multiple times to slow breathing. Warm blanket and wet wash cloth for forehead administered.
--- NOTE | 2024-01-10 17:39 | PC.NURSE ---
Mother at bedside.
[2024-01-10 17:48] LABS: Basophils Absolute Auto 0.03 K/mm3 (0.00-0.10); Basophils Percent Auto 0.2 % (0.0-1.0); Eosinophils Absolute Auto 0.01 K/mm3 (0.02-0.50); Eosinophils Percent Auto 0.1 % (1.0-6.0); Hematocrit 53.4 % (40.0-54.0); Hemoglobin 18.7 g/dL (14.0-18.0); Immature Granulocyte Absolute 0.12 K/mm3 (0.00-0.00); Immature Granulocyte Percent A 0.7 % (0.0-0.0); Lymphocytes Absolute Auto 1.38 K/mm3 (1.10-4.50); Mean Corpuscular Hemoglobin 32.4 pg (27.0-31.0); Mean Corpuscular Volume 92.4 fL (78.0-102.0); Mean Platelet Volume 9.5 fl (8.7-11.0); Monocytes Absolute Auto 1.52 K/mm3 (0.10-0.90); Monocytes Percent Auto 8.8 % (2.0-11.0); Neutrophils Absolute Auto 14.14 K/mm3 (1.70-7.20); Neutrophils Percent Auto 82.2 % (50.0-70.0); Platelet Count Result 392 K/mm3 (150-420); Red Blood Count 5.78 M/mm3 (4.70-6.10); Red Cell Distribution Width 12.3 % (11.6-14.4); White Blood Count 17.2 K/mm3 (4.8-10.8)
[2024-01-10 18:05] LABS: Alanine Aminotransferase 33 U/L (16-63); Albumin Level 5.7 g/dL (3.4-5.0); Alkaline Phosphatase 102 U/L (46-116); Anion Gap 22 mmol/L (4-12); Aspartate Amino Transferase 24 U/L (15-37); Bilirubin,Total 1.5 mg/dL (0.00-1.00); Blood Urea Nitrogen 18 mg/dL (7-18); Calcium 11.6 mg/dL (8.5-10.1); Carbon Dioxide 21 mmol/L (21-32); Chloride 99 mmol/L (98-108); Estimated Glomerular Filt Rate 28; Glucose 191 mg/dL (70-99); Osmolality Calculated 300 mOsm/kg (285-295); Potassium 3.6 mmol/L (3.5-5.1); Sodium 142 mmol/L (136-145)
[2024-01-10 18:30] VITALS: BP 126/77; PULSE 92; RESP 19; TEMP 36.2; O2SAT 100
== END 2024-01-10 18:30 | disposition home or self-care (01) ==
PROVIDERS: Emergency Provider Emergency Medicine
DX: R11.10 Vomiting, unspecified (principal); F12.90 Cannabis use, unspecified, uncomplicated
CPT/HCPCS: 36415; 80053; 82948; 85025; 96361; 96374; 99284; J1630; J7030